=== PATIENT | male | born 1995 | race Caucasian/White ===

== ENCOUNTER → 2017-01-15 | Outpatient (CLI) | payer BC, OTHER ==
[~2017-01-15] MED LIST: GADAVIST IV PRN; PATIENT'S ALLERGY INFO NEEDS ENTERED SCH
--- NOTE | 2017-01-15 17:52 | DIAGNOSTIC IMAGING REPORT ---
BRAIN COMBO CLINICAL HISTORY: 21 years-old Male presenting with ATYPICAL MIGRAINE, headaches for one week, no history of headaches, history of multiple concussions. TECHNIQUE: Multisequence, multiplanar MR imaging of the brain was performed before and after the administration of intravenous contrast. IV contrast: 9 mL of Gadavist. COMPARISON: None. FINDINGS: Ventricles and sulci normal in size. Brain parenchyma normal in appearance with preserved del castillo-white differentiation. No mass effect or midline shift. No restricted diffusion to suggest acute ischemia. No hemorrhage. No extra-axial fluid collection. T2 skull base flow voids preserved. No abnormal parenchymal enhancement. Bone marrow signal intensity within the calvarium within normal limits. Mild mucosal thickening in the right maxillary sinus. Orbits normal. IMPRESSION: 1. No acute intracranial pathology. No abnormal enhancement. Electronically signed by: Adis Villa M.D. 01/15/2017 5:50 PM Dictated Date/Time: 01/15/2017 5:47 PM
== END | disposition home or self-care (01) ==
LOC: C.MRI 16:55
PROVIDERS: ATTEND Family Medicine
DX: G43.009 Migraine without aura, not intractable, without status migrainosus (principal)